=== PATIENT | female | born 1955 | race African-American/Black ===

== ENCOUNTER 2020-07-01 10:28 | Emergency (ER) | payer OTHER ==
[~2020-07-01] VITALS: Ht 170.2 cm; Wt 80.7 kg
[~2020-07-01 10:28] MED LIST: ALBUTEROL SULF8.5 GM INH; CEPHALEXIN500 MG ORAL; CIPROFLOXACIN500 M2 ORAL; MONISTAT 745 GM VG; PHENAZOPYRIDIN100 MG ORAL; PROMETHAZINE-C118 M1 ORAL
[2020-07-01 10:40] VITALS: BP 148/75
--- NOTE | 2020-07-01 10:40 | NUR ---
ED Nurse Note: Pt walked into ED for R 2nd digit on hand laceration pain 04/01. Pt was cutting food and accidentally cut self with knife. Pt is alert and orientedx4, ambulatory. No bleeding currently. Pt has been seen by ANIKET.
[2020-07-01] MEDS ORDERED: Tetanus/Diptheria/Pertussis IM ONE (10:45)
--- NOTE | 2020-07-01 11:32 | NUR ---
ER DISCHARGE NOTE: Patient is cleared to be discharged per ERMD, pt is aox4, on room air, with stable vital signs. pt was given dc and prescription instructions, pt was able to verbalize understanding, pt id band removed. pt is able to ambulate with steady gait. pt took all belongings. Gauze dressing applied to wound site.
[2020-07-01 11:33] VITALS: BP 142/73
--- NOTE | 2020-07-02 08:41 | Emergency Room Report ---
History of Present Illness General Chief Complaint: Laceration Source: Patient Present Illness HPI 65-year-old female presents to ED for evaluation. States that she cut her right ring finger this morning while cooking. Was bleeding a lot but controlled with pressure. Tetanus unknown. Pain is burning, 7 out of 10, nonradiating. Denies any other injuries. No other aggravating relieving factors. Denies any other associated symptoms Allergies: Coded Allergies: No Known Allergies (Unverified , 11/10/15) COVID-19 Screening Contact w/high risk pt: No Experienced COVID-19 symptoms?: No COVID-19 Testing performed BID CLERK: No Patient History Past Medical History: none Past Surgical History: none Pertinent Family History: none Social History: Denies: smoking, alcohol use, drug use Now: No Immunizations: UTD Reviewed Nursing Documentation: PMH: Agreed; PSxH: Agreed Nursing Documentation-PMH Past Medical History: No Stated History Hx Cardiac Problems: Yes - Radioactive Ovulation Mar, 2013 Hx Hypertension: Yes Review of Systems All Other Systems: negative except mentioned in HPI Physical Exam Vital Signs Date Time Temp Pulse Resp B/P (MAP) Pulse Ox O2 Delivery O2 Flow Rate FiO2 07/01/20 10:30 97.2 79 19 154/79 (104) 100 Room Air Sp02 EP Interpretation: reviewed, normal General Appearance: no apparent distress, alert, GCS 15, non-toxic Head: normocephalic, atraumatic Eyes: bilateral eye normal inspection, bilateral eye PERRL ENT: normal ENT inspection Neck: normal inspection Respiratory: normal inspection Cardiovascular #1: normal inspection Gastrointestinal: normal inspection Rectal: deferred Genitourinary: no CVA tenderness Musculoskeletal: back normal Neurologic: alert, motor strength/tone normal, oriented x3, sensory intact, responsive, speech normal Psychiatric: judgement/insight normal, memory normal, mood/affect normal, no s uicidal/homicidal ideation Skin: no rash, laceration - 1cm flap laceration to distal R ring finger Lymphatic: normal inspection Procedures Laceration/Wound Repair Laceration/Wound Repair : Consent: Verbal Wound Location: upper extremity - R ring finger Wound's Depth, Shape: flap Wound Explored: clean Betadine Prep?: Yes Wound Debrided: minimal Wound Repaired With: Dermabond Layer Closure?: No Sterile Dressing Applied?: No Splint Applied?: No Sling Applied?: No Patient Tolerated: Well Complications: None Medical Decision Making Diagnostic Impression: Primary Impression: Laceration ER Course Hospital Course 65-year-old M presents to ED s/p laceration R ring finger using knife Clinical course Patient placed on stretcher. After initial history and physical I ordered tetanus shot. Irrigated. Wound is very superficial. Dermabond applied. Safe for discharge and close outpatient follow-up. States she has a PMD Diagnosis - laceration Stable and discharged to home. wound Care instructions given. Followup with PMD. Return to ED if any signs of infection develop Last Vital Signs Date Time Temp Pulse Resp B/P (MAP) Pulse Ox O2 Delivery O2 Flow Rate FiO2 07/01/20 11:33 97.2 76 18 142/73 98 Room Air Status: improved Disposition: HOME, SELF-CARE Condition: Stable Referrals: NON PHYSICIAN (PCP) Patient Instructions: Laceration Care, Adult, [id number] Mango Alvarez MD Jul 02, 2020 08:41
== END 2020-07-01 11:30 | disposition home or self-care (01) ==
LOC: EMR 11:15
DX: S61.214A Laceration without foreign body of right ring finger without damage to nail, initial encounter (principal); W26.0XXA Contact with knife, initial encounter; Y93.G3 Activity, cooking and baking; Z23 Encounter for immunization; I10 Essential (primary) hypertension
CPT/HCPCS: 90471; 90715; 99283